=== PATIENT | female | born 1950 | race Caucasian/White ===

== ENCOUNTER 2017-06-17 15:04 | Emergency (ER) | payer MEDICARE, BC ==
[~2017-06-17] VITALS: Ht 160 cm; Wt 50.0 kg
[~2017-06-17 15:04] MED LIST: ALPR.25 PO; PROT40TA PO
[2017-06-17 15:06] VITALS: BP 177/79; PULSE 73; RESP 16; TEMP 98.6; O2SAT 100
--- NOTE | 2017-06-17 15:10 | PD ---
Physical Exam Date Seen by Provider: Jun 17, 2017 Time Seen by Provider: 15:09 Narrative 67 year old female here for possible gallbladder attack. History of this in the past as well as pancreatitis. Started this am. Pain with N/V. No bleeding. Still has gallbladder. Not gone away. Pain is 7/10. No urinary symptoms. No chest pain or SOB. Vitals stable in triage. Awaiting bed placement. Data Data Last Documented VS Vital Signs Date Time Temp Pulse Resp B/P (MAP) Pulse Ox O2 Delivery O2 Flow Rate FiO2 06/17/17 15:06 98.6 73 16 177/79 (111) 100 Room Air [facility] Medical Record Reviewed: Yes Supervised Visit with CANDIDA: No Tyler Crane Jun 17, 2017 15:10
[2017-06-17 15:31] LABS: AUTOMATED NEUTROPHIL # 5.2 TH/MM3 (1.8-7.7); BASOPHIL % 0.4 % (0.0-2.0); EOSINOPHIL % 0.1 % (0.0-4.0); HEMATOCRIT 39.7 % (35.0-46.0); HEMO FLAGS DIFF FINAL; LYMPHOCYTE # 0.4 TH/MM3 (1.0-4.8); MEAN CELL VOLUME 91.5 FL (80.0-100.0); MEAN CORPUSCULAR HEMOGLOBIN 31.1 PG (27.0-34.0); NEUT % 87.5 % (16.0-70.0); PLATELET COUNT 209 TH/MM3 (150-450); RED BLOOD COUNT 4.34 MIL/MM3 (4.00-5.30); RED CELL DISTRIBUTION WIDTH 13.4 % (11.6-17.2)
[2017-06-17 15:46] LABS: BLOOD, URINE NEG (NEG); COMMENT (UR) CULT NOT INDICATED; CULTURE IF INDICATED CULT NOT INDICATED; GLUCOSE,URINE NEG (NEG); HYALINE CAST, URINE 1 /lpf (RARE); KETONE, URINE TRACE mg/dL (NEG); MUCUS URINE FEW /lpf (OCC); NITRITE,URINE NEG (NEG); SQUAMOUS EPITHELIAL CELL URINE 1 /hpf (0-5); URINE COLOR YELLOW (YELLW/STRAW)
[2017-06-17 15:58] LABS: ALT (GPT) 22 U/L (10-53); ANION GAP 6 MEQ/L (5-15); AST (GOT) 14 U/L (15-37); BICARBONATE 25.1 MEQ/L (21.0-32.0); BLOOD UREA NITROGEN 11 MG/DL (7-18); CHLORIDE 105 MEQ/L (98-107); GLOMERULAR FILTRATION RATE 64 ML/MIN (>89); POTASSIUM 3.8 MEQ/L (3.5-5.1); SODIUM (NA) 136 MEQ/L (136-145)
[2017-06-17 16:00] LABS: ALKALINE PHOSPHATASE 88 U/L (45-117); TOTAL BILIRUBIN ADULT 0.6 MG/DL (0.2-1.0)
--- NOTE | 2017-06-17 16:29 | RADRPT ---
EXAM DATE/TIME: 06/17/2017 15:32 [place] COMPARISON: CT PULMONARY ANGIOGRAM, July 05, 2014, 5:09. US ABDOMEN - GALLBLADDER, July 20, 2014, 18:17. INDICATIONS : Right upper quadrant pain. MEDICAL HISTORY : Pancreatitis. Hearing loss. Irregular heartbeat. Arthritis. Anxiety. SURGICAL HISTORY : section. ENCOUNTER: Subsequent ACUITY: 1 day PAIN SCORE: 6/10 LOCATION: Right upper quadrant MEASUREMENTS: LIVER: 12.9 cm length COMMON DUCT: 4 mm RIGHT KIDNEY: 9.6 x 4.4 x 4.0 cm FINDINGS: LIVER: Redemonstration of a small 2.1 x 1.1 x 2.0 cm hyperechoic lesion in the right lobe the liver which ap pears largely unchanged from prior ultrasound exam. Liver is otherwise unremarkable in its visualized portions without evidence for intrapelvic ductal dilatation. COMMON DUCT: No intraluminal mass or stone visualized. GALLBLADDER: Multiple small layering gallstones in the gallbladder which is moderately distended with slight gallb ladder wall prominence. No significant varicose cystic fluid or sonographic Recinos sign. PANCREAS: The visualized portions are within normal limits. RIGHT KIDNEY: No evidence of hydronephrosis, stone, or mass. CONCLUSION: 1. Stable 2.1 cm hyperechoic lesion in the right lobe of the liver, likely hemangioma given long-term stability. 2. Moderately distended gallbladder containing small layering gallstones with slight gallbladder wall prominence. Differential considerations include very early acute cholecystitis although this is felt to be not very likely. HIDA scan may be performed to evaluate for cystic duct patency if there is co ntinued clinical concern. Alexander Ordoñez MD on June 17, 2017 at 16:22 Board Certified Radiologist. This report was verified electronically.
[2017-06-17] MEDS ORDERED: ONDANSETRON HCL 4 MG/2 ML VIAL IV PUSH ONE (16:45)
[2017-06-17] MEDS ORDERED: KETOROLAC TROMETHAMINE 30 MG/ML (IVP) VIAL IV PUSH ONE (16:45)
[2017-06-17] MEDS ORDERED: HYDR-3533 PO (17:12)
[2017-06-17] MEDS ORDERED: NAPR500 PO (17:12)
[2017-06-17] MEDS ORDERED: ZOFR4TAB3 SL (17:12)
--- NOTE | 2017-06-17 17:14 | PD ---
HPI Chief Complaint: GI Complaint Time Seen by Provider: 16:39 Travel History International Travel<30 days: No Contact w/Intl Traveler<30days: No Traveled to known affect area: No History of Present Illness HPI 67-year-old female with no significant medical history presents to emergency department for evaluation of right upper quadrant pain. Patient states this began at 5 AM this morning. It has persisted throughout the day about a 6 out of 10. It then became 8 out of 10 and she was nauseous. She did vomit one time. Patient states that this is happened to her about 3 years ago. She was advised to follow-up with gastroenterology and she never did. She states she has been watching her diet very carefully but last night she ate peanut butter sludge which she feels may have exacerbated it. She denies fever or chills. Denies any other abdominal pain. Does not radiate anywhere. She has no other symptoms to report. PFSH Past Medical History Arthritis: Yes (PT STATES SHE HAS ARTHRITIS ACHES AND PAINS BUT NEVER DIAGNOSESD) Anxiety: Yes Heart Rhythm Problems: Yes (10 YEARS AGO ARRYTHMIA STATES STRESS RELATED. ) Diabetes: No Diminished Hearing: Yes (hearing aids ) Endocrine: No Gastrointestinal Disorders: No Genitourinary: No Immune Disorder: No Implanted Vascular Access Dvce: No Musculoskeletal: Yes Neurologic: No Psychiatric: No Reproductive: No Respiratory: No Thyroid Disease: No Tetanus Vaccination: > 5 Years Influenza Vaccination: No ?: Not Menopausal: Yes : 2 Para: 2 Past Surgical History Gynecologic Surgery: Yes (2 C-SECTIONS) Other Surgery: Yes Social History Alcohol Use: No Tobacco Use: No Substance Use: No Allergies-Medications (Allergen,Severity, Reaction): Coded Allergies: No Known Allergies (Unverified , 06/17/17) Reported Meds & Prescriptions Reported Meds & Active Scripts Active Zofran Odt (Ondansetron Odt) 4 Mg Tab 4 Mg SL Q6HR PRN Lortab (Hydrocodone-Acetaminophen) 5-325 Mg Tab 1 Tab PO Q6H PRN Naprosyn (Naproxen) 500 Mg Tab 500 Mg PO BID PRN Review of Systems Except as stated in HPI: all other systems reviewed are Neg Physical Exam Narrative GENERAL: Well-nourished female patient, ambulatory no acute distress. SKIN: Focused skin assessment warm/dry. HEAD: Atraumatic. Normocephalic. EYES: Pupils equal and round. No scleral icterus. No injection or drainage. ENT: No nasal bleeding or discharge. Mucous membranes pink and moist. NECK: Trachea midline. No JVD. CARDIOVASCULAR: Regular rate and rhythm. No murmur appreciated. RESPIRATORY: No accessory muscle use. Clear to auscultation. Breath sounds equal bilaterally. GASTROINTESTINAL: Abdomen soft, nondistended. Tenderness elicited palpation the right upper quadrant without rebound tenderness. No guarding. Hepatic and splenic margins not palpable. MUSCULOSKELETAL: No obvious deformities. No clubbing. No cyanosis. No edema. NEUROLOGICAL: Awake and alert. No obvious cranial nerve deficits. Motor grossly within normal limits. Normal speech. PSYCHIATRIC: Appropriate mood and affect; insight and judgment normal. Data Data Last Documented VS Vital Signs Date Time Temp Pulse Resp B/P (MAP) Pulse Ox O2 Delivery O2 Flow Rate FiO2 06/17/17 17:25 17 06/17/17 15:06 98.6 73 177/79 (111) 100 Room Air Orders Orders Complete Blood Count With Diff (06/17/17 15:10) Comprehensive Metabolic Panel (06/17/17 15:10) Lipase (06/17/17 15:10) Urinalysis - C+S If Indicated (06/17/17 15:10) Us Abdomen Gallbladder (06/17/17 ) Iv Access Insert/Monitor (06/17/17 16:44) Ketorolac Inj (Toradol Inj) (06/17/17 16:45) Ondansetron Inj (Zofran Inj) (06/17/17 16:45) Morphine Inj (Morphine Inj) (06/17/17 17:15) Sodium Chlor 0.9% 1000 Ml Inj (Ns 1000 M (06/17/17 17:50) Sodium Chloride 0.9% Flush (Ns Flush) (06/17/17 18:00) Sodium Chloride 0.9% Flush (Ns Flush) (06/17/17 21:00) Acetaminophen (Tylenol) (06/17/17 18:00) Ondansetron Inj (Zofran Inj) (06/17/17 18:00) Resp Oxygen Blake C Titrat 1-4 L (06/17/17 ) Enoxaparin Inj (Lovenox Inj) (06/17/17 18:00) Naloxone Inj (Narcan Inj) (06/17/17 18:00) Docusate Sodium-Senna (Serena-Colace) (06/17/17 21:00) Magnesium Hydroxide Liq (Milk Of Magnesi (06/17/17 18:00) Sennosides (Senokot) (06/17/17 18:00) Bisacodyl Supp (Dulcolax Supp) (06/17/17 18:00) Lactulose Liq (Lactulose Liq) (06/17/17 18:00) Labs Laboratory Tests Test 06/17/17 15:15 White Blood Count 6.0 TH/MM3 Red Blood Count 4.34 MIL/MM3 Hemoglobin 13.5 GM/DL Hematocrit 39.7 % Mean Corpuscular Volume 91.5 FL Mean Corpuscular Hemoglobin 31.1 PG Mean Corpuscular Hemoglobin Concent 34.0 % Red Cell Distribution Width 13.4 % Platelet Count 209 TH/MM3 Mean Platelet Volume 8.6 FL Neutrophils (%) (Auto) 87.5 % Lymphocytes (%) (Auto) 6.0 % Monocytes (%) (Auto) 6.0 % Eosinophils (%) (Auto) 0.1 % Basophils (%) (Auto) 0.4 % Neutrophils # (Auto) 5.2 TH/MM3 Lymphocytes # (Auto) 0.4 TH/MM3 Monocytes # (Auto) 0.4 TH/MM3 Eosinophils # (Auto) 0.0 TH/MM3 Basophils # (Auto) 0.0 TH/MM3 CBC Comment DIFF FINAL Differential Comment Urine Color YELLOW Urine Turbidity CLEAR Urine pH 6.0 Urine Specific [place] 1.024 Urine Protein TRACE mg/dL Urine Glucose (UA) NEG mg/dL Urine Ketones TRACE mg/dL Urine Occult Blood NEG Urine Nitrite NEG Urine Bilirubin NEG Urine Urobilinogen LESS THAN 2.0 MG/DL Urine Leukocyte Esterase NEG Urine RBC 4 /hpf Urine WBC 1 /hpf Urine Squamous Epithelial Cells 1 /hpf Urine Hyaline Casts 1 /lpf Urine Mucus FEW /lpf Microscopic Urinalysis Comment CULT NOT INDICATED Blood Urea Nitrogen 11 MG/DL Creatinine 0.88 MG/DL Random Glucose 123 MG/DL Total Protein 7.3 GM/DL Albumin 4.1 GM/DL Calcium Level 8.8 MG/DL Alkaline Phosphatase 88 U/L Aspartate Amino Transf (AST/SGOT) 14 U/L Alanine Aminotransferase (ALT/SGPT) 22 U/L Total Bilirubin 0.6 MG/DL Sodium Level 136 MEQ/L Potassium Level 3.8 MEQ/L Chloride Level 105 MEQ/L Carbon Dioxide Level 25.1 MEQ/L Anion Gap 6 MEQ/L Estimat Glomerular Filtration Rate 64 ML/MIN Lipase 109 U/L [facility] Medical Decision Making Medical Screen Exam Complete: Yes Emergency Medical Condition: Yes Medical Record Reviewed: Yes Differential Diagnosis Cholecystitis versus cholelithiasis versus biliary colic versus gastritis Narrative Course 67 year-old female presents to department for evaluation right upper quadrant tenderness. Lab work is without acute concern. Ultrasound is ordered. Patient was treated for pain with Toradol. Last Impressions Gall Bladder Ultrasound 06/17/17 0000 Signed Impressions: Service Date/Time: Thursday, June 17, 2017 15:32 - CONCLUSION: 1. Stable 2.1 cm hyperechoic lesion in the right lobe of the liver, likely hemangioma given long-term stability. 2. Moderately distended gallbladder containing small layering gallstones with slight gallbladder wall prominence. Differential considerations include very early acute cholecystitis although this is felt to be not very likely. HIDA scan may be performed to evaluate for cystic duct patency if there is continued clinical concern. Alexander Ordoñez MD Laboratory Tests Test 06/17/17 15:15 White Blood Count 6.0 TH/MM3 Red Blood Count 4.34 MIL/MM3 Hemoglobin 13.5 GM/DL Hematocrit 39.7 % Mean Corpuscular Volume 91.5 FL Mean Corpuscular Hemoglobin 31.1 PG Mean Corpuscular Hemoglobin Concent 34.0 % Red Cell Distribution Width 13.4 % Platelet Count 209 TH/MM3 Mean Platelet Volume 8.6 FL Neutrophils (%) (Auto) 87.5 % Lymphocytes (%) (Auto) 6.0 % Monocytes (%) (Auto) 6.0 % Eosinophils (%) (Auto) 0.1 % Basophils (%) (Auto) 0.4 % Neutrophils # (Auto) 5.2 TH/MM3 Lymphocytes # (Auto) 0.4 TH/MM3 Monocytes # (Auto) 0.4 TH/MM3 Eosinophils # (Auto) 0.0 TH/MM3 Basophils # (Auto) 0.0 TH/MM3 CBC Comment DIFF FINAL Differential Comment Urine Color YELLOW Urine Turbidity CLEAR Urine pH 6.0 Urine Specific [place] 1.024 Urine Protein TRACE mg/dL Urine Glucose (UA) NEG mg/dL Urine Ketones TRACE mg/dL Urine Occult Blood NEG Urine Nitrite NEG Urine Bilirubin NEG Urine Urobilinogen LESS THAN 2.0 MG/DL Urine Leukocyte Esterase NEG Urine RBC 4 /hpf Urine WBC 1 /hpf Urine Squamous Epithelial Cells 1 /hpf Urine Hyaline Casts 1 /lpf Urine Mucus FEW /lpf Microscopic Urinalysis Comment CULT NOT INDICATED Blood Urea Nitrogen 11 MG/DL Creatinine 0.88 MG/DL Random Glucose 123 MG/DL Total Protein 7.3 GM/DL Albumin 4.1 GM/DL Calcium Level 8.8 MG/DL Alkaline Phosphatase 88 U/L Aspartate Amino Transf (AST/SGOT) 14 U/L Alanine Aminotransferase (ALT/SGPT) 22 U/L Total Bilirubin 0.6 MG/DL Sodium Level 136 MEQ/L Potassium Level 3.8 MEQ/L Chloride Level 105 MEQ/L Carbon Dioxide Level 25.1 MEQ/L Anion Gap 6 MEQ/L Estimat Glomerular Filtration Rate 64 ML/MIN Lipase 109 U/L I have reviewed the findings with my attending physician who agrees the patient can likely be discharged if her pain is controlled.. Upon reassessment, patient 's pain persists but has decreased. She'll be given additional pain control. 1750 patient is resting with her eyes closed and the back. Go into the room to reassess her and waking her. She tells me that her pain is 100% resolved. She' ll be discharged home with pain control. I have counseled her on diet. Reviewed the findings and stressed the importance of follow-up with his GI specialist. She verbalizes understanding. She'll be discharged at this time. Diagnosis Primary Impression: Recurrent biliary colic Additional Impression: Cholelithiasis Qualified Codes: K80.70 - Calculus of gallbladder and bile duct without cholecystitis without obstruction Referrals: [employer] Primary Care Physician Patient Instructions: Biliary Colic (ED), Gallstones (ED), General Instructions Additional Instructions: Avoid fatty foods Follow up with your primary care provider Seek gastroenterology follow up Return to ED with acute worsening of symptoms Med/Other Pt SpecificInfo: Prescription(s) given Scripts Ondansetron Odt (Zofran Odt) 4 Mg Tab 4 MG SL Q6HR Y for Nausea/Vomiting, #12 TAB 0 Refills Prov: Alta Servin 06/17/17 Hydrocodone-Acetaminophen (Lortab) 5-325 Mg Tab 1 TAB PO Q6H Y for PAIN GREATER THAN 6, #12 TAB 0 Refills Prov: Alta Servin 06/17/17 Naproxen (Naprosyn) 500 Mg Tab 500 MG PO BID Y for PAIN SCALE 1 TO 10, #30 TAB 0 Refills Prov: Alta Servin 06/17/17 Disposition: 01 DISCHARGE HOME Condition: Stable Alta Servin Jun 17, 2017 17:14
[2017-06-17] MEDS ORDERED: MORPHINE SULFATE 2 MG/ML INJ IV PUSH ONE (17:15)
[2017-06-17 17:25] VITALS: RESP 17
[2017-06-17] MEDS ORDERED: SODIUM CHLOR 0.9% 1000 ML INJ 1,000 ML IV SCH (17:50)
[2017-06-17] MEDS ORDERED: SENNOSIDES 8.6 MG TAB PO PRN (18:00)
[2017-06-17] MEDS ORDERED: ONDANSETRON HCL 4 MG/2 ML VIAL IVP PRN (18:00)
[2017-06-17] MEDS ORDERED: NALOXONE HCL 0.4 MG/ML AMP IV PUSH PRN (18:00)
[2017-06-17] MEDS ORDERED: ENOXAPARIN SODIUM 40 MG/0.4 ML SYRINGE SQ SCH (18:00)
[2017-06-17] MEDS ORDERED: BISACODYL 10 MG SUPP RECTAL PRN (18:00)
[2017-06-17] MEDS ORDERED: ACETAMINOPHEN 325 MG TAB PO PRN (18:00)
[2017-06-17] MEDS ORDERED: SODIUM CHLORIDE 0.9% FLUSH 10 ML FLUSH IV FLUSH PRN (18:00)
[2017-06-17] MEDS ORDERED: LACTULOSE SYRUP 20 GM/30 ML CUP PO PRN (18:00)
[2017-06-17] MEDS ORDERED: MAGNESIUM HYDROXIDE SUSP 30 ML CUP PO PRN (18:00)
[2017-06-17 18:02] VITALS: BP 122/77; TEMP 98
[2017-06-17] MEDS ORDERED: DOCUSATE SODIUM 50 MG/SENNA 8.6 MG TAB PO SCH (21:00)
[2017-06-17] MEDS ORDERED: SODIUM CHLORIDE 0.9% FLUSH 10 ML FLUSH IV FLUSH SCH (21:00)
[2017-07-08] MEDS ORDERED: HYDR-3534 PO (15:00)
== END 2017-06-17 18:02 | disposition home or self-care (01) ==
LOC: NEPD 15:04
DX: K80.20 Calculus of gallbladder without cholecystitis without obstruction (principal); M19.90 Unspecified osteoarthritis, unspecified site; F41.9 Anxiety disorder, unspecified
CPT/HCPCS: 76705; 80053; 81001; 83690; 85025; 96374; 96375; 99285; J1885; J2270; J2405

== ENCOUNTER 2017-07-08 12:46 | Emergency (ER) | payer MEDICARE, BC ==
[~2017-07-08] VITALS: Ht 162.6 cm; Wt 48.8 kg
[~2017-07-08 12:46] MED LIST changes: -ALPR.25 PO; +HYDR-3533 PO; +NAPR500 PO; -PROT40TA PO; +ZOFR4TAB3 SL
[2017-07-08 12:51] VITALS: BP 130/61; PULSE 58; RESP 18; TEMP 97.4; O2SAT 100
--- NOTE | 2017-07-08 13:40 | PD ---
HPI Chief Complaint: Abdominal Pain Time Seen by Provider: 13:26 Travel History International Travel<30 days: No Contact w/Intl Traveler<30days: No Traveled to known affect area: No History of Present Illness HPI This 67-year-old female had an episode at home of abdominal pain. She has had pancreatitis in the past. 2 weeks ago she was seen at the [facility] with abdominal pain. She had an ultrasound which showed multiple gallstones in the slightly distended gallbladder. She was released and has done well at home. Today after eating breakfast she had an episode where she had pain across her abdomen and her back. It also radiated up into her chest. She had some palpitations which she has had in the past. The episode lasted about 2 hours and then has suddenly disappeared. There is no shortness of breath. There is no radiation down the arms. She says it was a little bit different than her usual gallbladder attack. She feels well now PFSH Past Medical History Arthritis: Yes (PT STATES SHE HAS ARTHRITIS ACHES AND PAINS BUT NEVER DIAGNOSESD) Anxiety: Yes Heart Rhythm Problems: Yes (10 YEARS AGO ARRYTHMIA STATES STRESS RELATED. ) Cancer: No Cardiovascular Problems: Yes (ARRTHYMIA ) Diabetes: No Diminished Hearing: Yes (hearing aids ) Endocrine: No Gastrointestinal Disorders: No Genitourinary: No Immune Disorder: No Implanted Vascular Access Dvce: No Musculoskeletal: Yes Neurologic: No Psychiatric: No Reproductive: No Respiratory: No Thyroid Disease: No ?: Not Menopausal: Yes : 2 Para: 2 Past Surgical History Gynecologic Surgery: Yes (2 C-SECTIONS) Other Surgery: Yes Social History Alcohol Use: No Tobacco Use: No Substance Use: No Allergies-Medications (Allergen,Severity, Reaction): Coded Allergies: No Known Allergies (Unverified , 07/08/17) Reported Meds & Prescriptions Reported Meds & Active Scripts Active Zofran Odt (Ondansetron Odt) 4 Mg Tab 4 Mg SL Q6HR PRN Lortab (Hydrocodone-Acetaminophen) 5-325 Mg Tab 1 Tab PO Q6H PRN Naprosyn (Naproxen) 500 Mg Tab 500 Mg PO BID PRN Review of Systems General / Constitutional: No: Fever, Chills Eyes: No: Diploplia HENT: No: Headaches, Vertigo Cardiovascular: Positive: Palpitations, No: Chest Pain or Discomfort Respiratory: No: Cough, Shortness of Breath Gastrointestinal: Positive: Nausea, Vomiting, No: Diarrhea, Hematemesis Genitourinary: No: Urgency, Frequency Musculoskeletal: No: Myalgias Skin: No Rash Endocrine: No: Heat Intolerance Hematologic/Lymphatic: No: Easy Bruising Physical Exam Narrative GENERAL well-developed female SKIN: Focused skin assessment warm/dry. HEAD: Atraumatic. Normocephalic. EYES: Pupils equal and round. No scleral icterus. No injection or drainage. ENT: No nasal bleeding or discharge. Mucous membranes pink and moist. NECK: Trachea midline. No JVD. CARDIOVASCULAR: Regular rate and rhythm. No murmur appreciated. RESPIRATORY: No accessory muscle use. Clear to auscultation. Breath sounds equal bilaterally. GASTROINTESTINAL: Abdomen soft, non-tender, nondistended. Hepatic and splenic margins not palpable. MUSCULOSKELETAL: No obvious deformities. No clubbing. No cyanosis. No edema. NEUROLOGICAL: Awake and alert. No obvious cranial nerve deficits. Motor grossly within normal limits. Normal speech. PSYCHIATRIC: Appropriate mood and affect; insight and judgment normal. Data Data Last Documented VS Vital Signs Date Time Temp Pulse Resp B/P (MAP) Pulse Ox O2 Delivery O2 Flow Rate FiO2 07/08/17 12:51 97.4 58 18 130/61 (84) 100 Orders Orders Electrocardiogram (07/08/17 13:35) Complete Blood Count With Diff (07/08/17 13:35) Comprehensive Metabolic Panel (07/08/17 13:35) Troponin I (07/08/17 13:35) Lipase (07/08/17 13:35) Labs Laboratory Tests Test 07/08/17 13:57 White Blood Count 9.7 TH/MM3 Red Blood Count 4.07 MIL/MM3 Hemoglobin 12.2 GM/DL Hematocrit 36.6 % Mean Corpuscular Volume 89.9 FL Mean Corpuscular Hemoglobin 30.0 PG Mean Corpuscular Hemoglobin Concent 33.4 % Red Cell Distribution Width 12.3 % Platelet Count 183 TH/MM3 Mean Platelet Volume 9.1 FL Neutrophils (%) (Auto) 85.8 % Lymphocytes (%) (Auto) 3.8 % Monocytes (%) (Auto) 6.2 % Eosinophils (%) (Auto) 1.3 % Basophils (%) (Auto) 2.9 % Neutrophils # (Auto) 8.3 TH/MM3 Lymphocytes # (Auto) 0.4 TH/MM3 Monocytes # (Auto) 0.6 TH/MM3 Eosinophils # (Auto) 0.1 TH/MM3 Basophils # (Auto) 0.3 TH/MM3 CBC Comment DIFF FINAL Differential Comment Blood Urea Nitrogen 12 MG/DL Creatinine 0.88 MG/DL Random Glucose 110 MG/DL Total Protein 6.7 GM/DL Albumin 3.4 GM/DL Calcium Level 8.8 MG/DL Alkaline Phosphatase 96 U/L Aspartate Amino Transf (AST/SGOT) 105 U/L Alanine Aminotransferase (ALT/SGPT) 50 U/L Total Bilirubin 0.7 MG/DL Sodium Level 138 MEQ/L Potassium Level 4.8 MEQ/L Chloride Level 106 MEQ/L Carbon Dioxide Level 26.0 MEQ/L Anion Gap 6 MEQ/L Estimat Glomerular Filtration Rate 64 ML/MIN Troponin I LESS THAN 0.02 NG/ML Lipase 112 U/L MDM Medical Decision Making Medical Screen Exam Complete: Yes Emergency Medical Condition: Yes Medical Record Reviewed: Yes Differential Diagnosis Differential includes biliary colic, coronary artery disease Narrative Course Patient is asymptomatic now. I will check an EKG and troponin to see if this may have represented cardiac episode. EKG is unchanged from previous EKGs. Troponin is normal. I believe this was an episode of biliary colic Diagnosis Primary Impression: Biliary colic Disposition: 01 DISCHARGE HOME Condition: Stable Gamal Menjivar MD Jul 08, 2017 13:40
[2017-07-08 14:07] LABS: AUTOMATED NEUTROPHIL # 8.3 TH/MM3 (1.8-7.7); BASOPHIL # 0.3 TH/MM3 (0-0.2); BASOPHIL % 2.9 % (0.0-2.0); EOSINOPHIL # 0.1 TH/MM3 (0-0.4); EOSINOPHIL % 1.3 % (0.0-4.0); HEMATOCRIT 36.6 % (35.0-46.0); HEMOGLOBIN 12.2 GM/DL (11.6-15.3); LYMPH % 3.8 % (9.0-44.0); LYMPHOCYTE # 0.4 TH/MM3 (1.0-4.8); MEAN CELL VOLUME 89.9 FL (80.0-100.0); MEAN CORPUSCULAR HGB CONC 33.4 % (32.0-36.0); MEAN PLATELET VOLUME 9.1 FL (7.0-11.0); MONO % 6.2 % (0.0-8.0); MONOCYTE # 0.6 TH/MM3 (0-0.9); NEUT % 85.8 % (16.0-70.0); PLATELET COUNT 183 TH/MM3 (150-450); RED BLOOD COUNT 4.07 MIL/MM3 (4.00-5.30); RED CELL DISTRIBUTION WIDTH 12.3 % (11.6-17.2); WHITE BLOOD COUNT 9.7 TH/MM3 (4.0-11.0)
[2017-07-08 14:16] LABS: CHLORIDE 106 MEQ/L (98-107); SODIUM (NA) 138 MEQ/L (136-145)
[2017-07-08 14:19] LABS: ALBUMIN 3.4 GM/DL (3.4-5.0); CALCIUM 8.8 MG/DL (8.5-10.1); LIPASE 112 U/L (73-393)
[2017-07-08 14:20] LABS: BLOOD UREA NITROGEN 12 MG/DL (7-18); GLUCOSE,RANDOM 110 MG/DL (74-106)
[2017-07-08 14:22] LABS: ALT (GPT) 50 U/L (10-53); AST (GOT) 105 U/L (15-37)
[2017-07-08 14:23] LABS: CREATININE 0.88 MG/DL (0.50-1.00); GLOMERULAR FILTRATION RATE 64 ML/MIN (>89)
[2017-07-08 14:24] LABS: TOTAL BILIRUBIN ADULT 0.7 MG/DL (0.2-1.0); TOTAL PROTEIN 6.7 GM/DL (6.4-8.2)
[2017-07-08 14:25] LABS: ALKALINE PHOSPHATASE 96 U/L (45-117)
[2017-07-08 14:27] LABS: TROPONIN I LESS THAN 0.02 NG/ML (0.02-0.05)
[2017-07-08] MEDS ORDERED: HYDR-3534 PO ×2 (15:00)
--- NOTE | 2017-07-09 14:58 | EKG ---
Date Performed: 07/08/2017 Time Performed: 13:44:26 PTAGE: 67 years EKG: SINUS BRADYCARDIA SEPTAL MYOCARDIAL INFARCTION ABNORMAL ECG PREVIOUS TRACING : 07/05/2014 03.22 Compared to prior tracing no significant change DOCTOR: Isabel Snow Interpretating Date/Time 07/09/2017 14:53:37
== END 2017-07-08 15:31 | disposition home or self-care (01) ==
LOC: PHED 12:46
DX: K80.50 Calculus of bile duct without cholangitis or cholecystitis without obstruction (principal); R94.31 Abnormal electrocardiogram [ECG] [EKG]; R00.2 Palpitations
CPT/HCPCS: 80053; 83690; 84484; 85025; 93005; 99284